=== PATIENT | male | born 1965 | race Caucasian/White ===

== ENCOUNTER → 2018-06-19 | Outpatient (CLI) | payer BC, OTHER ==
[2018-06-19 13:39] LABS: ANION GAP 4 MEQ/L (8-16); BLOOD UREA NITROGEN 22 MG/DL (7-18); CALCIUM LEVEL 9.2 MG/DL (8.5-10.1); CARBON DIOXIDE LEVEL 34 MEQ/L (21-32); CHLORIDE LEVEL 105 MEQ/L (98-107); CREATININE FOR GFR 1.06 MG/DL (0.70-1.30); GLOMERULAR FILTRATION RATE > 60.0 (>56); GLUCOSE, FASTING 87 MG/DL (70-100); POTASSIUM SERUM 3.6 MEQ/L (3.5-5.1); SODIUM LEVEL 143 MEQ/L (136-145)
== END ==
LOC: M WUC 10:15
DX: I10 Essential (primary) hypertension (principal)
CPT/HCPCS: 80048

== ENCOUNTER → 2018-11-25 | Outpatient (CLI) | payer BC, OTHER ==
[~2018-11-25] MED LIST: ALLE10TA12 PO; CELE1CAP9 PO; CYMB60CA3 PO; DIPH50TA4 PO; IBUP200C25 PO; LISI40TAB PO; LORA1SOL PO; MULT1TAB10 PO; VITA2000 PO
--- NOTE | 2018-11-25 16:32 | REP ---
LEFT KNEE, FIVE VIEWS: HISTORY: Knee pain. There is no acute fracture or dislocation. There is mild narrowing of the medial knee joint space and minimal narrowing of the lateral knee joint space. Osteophytes are present on the femur, tibial and patella. A small suprapatellar joint effusion is present. IMPRESSION:Degenerative change as described above. Electronically Signed by Andrey Rodriguez MD 11/25/2018 04:40 P
== END ==
LOC: M WUC 13:51
PROVIDERS: ATTEND Family Medicine
DX: M25.562 Pain in left knee (principal)

== ENCOUNTER → 2019-01-13 | Outpatient (CLI) | payer OTHER, BC ==
[2019-01-13 10:06] LABS: BASO % 0.8 % (0.0-1.0); EOS # 0.2 10^3/uL (0.0-0.50); EOS % 3.4 % (0.0-3.0); HEMATOCRIT 42.3 % (42.0-52.0); HEMOGLOBIN 14.5 g/dl (13.5-17.5); LYMPH # 2.2 10^3/uL (1.5-4.5); LYMPH % 41.3 % (24.0-44.0); MEAN CORPUSCULAR HEMOGLOBIN 28.8 pg (27.0-33.0); MEAN CORPUSCULAR HGB CONC 34.3 g/dl (32.0-36.5); MEAN CORPUSCULAR VOLUME 83.9 fl (80.0-96.0); MONO # 0.4 10^3/uL (0.0-0.8); MONO % 8.3 % (0.0-5.0); NEUTROPHILS # 2.5 10^3/uL (1.8-7.7); PLATELET COUNT, AUTOMATED 223 10^3/uL (150-450); RED BLOOD COUNT 5.04 10^6/uL (4.30-6.10); WHITE BLOOD COUNT 5.3 10^3/uL (4.0-10.0)
[2019-01-13 10:31] LABS: ALBUMIN 3.8 GM/DL (3.2-5.2); ALT/SGPT 31 U/L (12-78); BILIRUBIN,TOTAL 0.7 MG/DL (0.2-1.0); BLOOD UREA NITROGEN 14 MG/DL (7-18); CALCIUM LEVEL 8.8 MG/DL (8.5-10.1); CARBON DIOXIDE LEVEL 29 MEQ/L (21-32); CHLORIDE LEVEL 105 MEQ/L (98-107); CHOLESTEROL LEVEL 160 MG/DL (<200); GLOMERULAR FILTRATION RATE > 60.0 (>56); GLUCOSE, FASTING 89 MG/DL (70-100); HDL CHOLESTEROL 40 MG/DL (>40); LDL CHOLESTEROL 105 MG/DL (<100); NON-HDL-C 120 MG/DL; POTASSIUM SERUM 3.8 MEQ/L (3.5-5.1); SODIUM LEVEL 141 MEQ/L (136-145); TOTAL PROTEIN 6.9 GM/DL (6.4-8.2); TRIGLYCERIDES LEVEL 76 MG/DL (<150)
[2019-01-13 11:03] LABS: TOTAL 25(OH) VITAMIN D 66.6 NG/ML (30.0-100.0)
== END ==
LOC: M WUC 08:38
PROVIDERS: ATTEND Family Medicine
DX: E55.9 Vitamin D deficiency, unspecified (principal); I10 Essential (primary) hypertension

== ENCOUNTER → 2019-05-22 | Outpatient (CLI) | payer BC, OTHER ==
[~2019-05-22] MED LIST changes: +LISI40TA52 PO; -LISI40TAB PO; -LORA1SOL PO; +LORA5SOL12 PO
--- NOTE | 2019-05-27 10:37 | SLEEPCENT ---
DATE OF PROCEDURE: 05/22/2019 ORDERED BY: Neda Méndez NP Nocturnal polysomnography was performed for evaluation of sleep physiology in this patient with disrupted sleep and excessive somnolence who has comorbidities of hypertension and obesity. 8 hours and 44 minutes of data were reviewed. There were 411 minutes of sleep identified. Sleep latency was prolonged at 37.5 minutes. Rapid eye movement (REM) latency was normal at 78 minutes. Sleep architecture showed fragmentation but progression was maintained. There were 4 REM cycles noted. Overall sleep efficiency 79.4%. The electrocardiogram showed a sinus rhythm with an average heart rate of 65 beats per minute. Electroencephalogram (EEG) showed fairly normal waveforms for awake and sleep. There were 72 respiratory events identified of 10 seconds in duration or greater for an apnea-hypopnea index of 10.5. The events were obstructive but not exclusive to sleep stage nor body posture. Arousals from respiratory events occurred 12.2 times per hour when arousals from snoring were included. Oxygen desaturations were seen into the 80s. There was some limb activity but arousals from limb events were few. IMPRESSION: Obstructive sleep apnea syndrome (G47.33). Apnea-hypopnea index 10.5. RECOMMENDATIONS: The patient should be encouraged to return to the sleep disorder center for pressure therapy. In the interim, alcohol and sedative avoidance should be practiced and caution exercised during the operation of motor vehicles.
== END ==
LOC: M SLEEP 19:46
PROVIDERS: ATTEND Nurse Practitioner Adult Health
DX: G47.33 Obstructive sleep apnea (adult) (pediatric) (principal)

== ENCOUNTER → 2019-06-12 | Outpatient (CLI) | payer BC, OTHER ==
--- NOTE | 2019-06-17 09:16 | SLEEPCENT ---
DATE OF PROCEDURE: 06/12/2019 ORDERED BY: Neda Méndez NP Nocturnal polysomnography was performed for the titration of pressure therapy in this patient with obstructive sleep apnea syndrome. Apnea-hypopnea index 10.5. For testing, a [employer]Med Quattro full face mask of large size was used, 5 cm of water pressure were applied to the circuit, and the lights were extinguished. 7 hours and 43 minutes of data were reviewed. There were 370 minutes of sleep identified. Sleep latency was mildly prolonged at 39.5 minutes. Rapid eye movement (REM) latency was normal at 73 minutes. Sleep architecture was fairly good. There were 4 REM cycles. Overall sleep efficiency was 80.8%. The patient's electrocardiogram showed a bigeminal rhythm intermixed with a sinus rhythm and frequent PVCs. Average heart rate 56 beats per minute. Electroencephalogram (EEG) showed normal waveforms for awake and stages. Respiratory events were fully palliated with C-PAP of pressure +9. Remaining measures of sleep physiology were normal. IMPRESSION: 1. Obstructive sleep apnea syndrome (G47.33). 2. Cardiac dysrhythmia. RECOMMENDATIONS: Nightly use of pressure therapy 9 cm of water.
== END ==
LOC: M SLEEP 19:41
PROVIDERS: ATTEND Nurse Practitioner Adult Health
DX: G47.33 Obstructive sleep apnea (adult) (pediatric) (principal)

== ENCOUNTER → 2020-05-04 | Outpatient (CLI) | payer BC, OTHER ==
[2020-05-04 13:18] LABS: HEMATOCRIT 43.9 % (42.0-52.0); MEAN CORPUSCULAR HEMOGLOBIN 29.2 pg (27.0-33.0); MEAN CORPUSCULAR HGB CONC 34.2 g/dl (32.0-36.5); MEAN CORPUSCULAR VOLUME 85.6 fl (80.0-96.0); PLATELET COUNT, AUTOMATED 227 10^3/uL (150-450); RED BLOOD COUNT 5.13 10^6/uL (4.30-6.10); WHITE BLOOD COUNT 6.3 10^3/uL (4.0-10.0)
[2020-05-04 13:29] LABS: ALBUMIN 3.7 GM/DL (3.2-5.2); ALT/SGPT 71 U/L (12-78); BILIRUBIN,TOTAL 0.5 MG/DL (0.2-1.0); BLOOD UREA NITROGEN 17 MG/DL (7-18); CALCIUM LEVEL 9.2 MG/DL (8.5-10.1); CARBON DIOXIDE LEVEL 30 MEQ/L (21-32); CHLORIDE LEVEL 107 MEQ/L (98-107); CHOLESTEROL LEVEL 190 MG/DL (<200); CHOLESTEROL RISK RATIO 4.634 (<5); CREATININE FOR GFR 1.04 MG/DL (0.70-1.30); GLOMERULAR FILTRATION RATE > 60.0 (>56); GLUCOSE, FASTING 95 MG/DL (70-100); HDL CHOLESTEROL 41 MG/DL (>40); LDL CHOLESTEROL 123 MG/DL (<100); NON-HDL-C 149 MG/DL; POTASSIUM SERUM 3.9 MEQ/L (3.5-5.1); PROSTATIC SPECIFIC AG MONITOR 0.45 NG/ML (< 4.00); SODIUM LEVEL 139 MEQ/L (136-145); TOTAL PROTEIN 6.9 GM/DL (6.4-8.2); TRIGLYCERIDES LEVEL 129 MG/DL (<150)
[2020-05-04 13:56] LABS: TOTAL 25(OH) VITAMIN D 41.1 NG/ML (30.0-100.0)
== END ==
LOC: M WUC 09:11
PROVIDERS: ATTEND Family Medicine
DX: Z12.5 Encounter for screening for malignant neoplasm of prostate (principal); I10 Essential (primary) hypertension; E55.9 Vitamin D deficiency, unspecified

== ENCOUNTER → 2021-02-22 | Outpatient (CLI) | payer BC, OTHER ==
[~2021-02-22] MED LIST changes: -LORA5SOL12 PO; +LORA5SOL44 PO
--- NOTE | 2021-02-22 13:37 | REPPI ---
INDICATION: OSTEOARTHRITIS. COMPARISON: None. TECHNIQUE: Plain films of the cervical spine include AP lateral and obliques as well as flex ex views. FINDINGS: No fracture or malalignment. Degenerative changes are more notable at the C6-7 level with anterior osteophytic spurring. Prevertebral soft tissues appear unremarkable. No definite instability on the flex ex views. Osteophytes narrow the neural foramen as seen on the oblique views, C3-4, C5-6 and C6-7 levels. IMPRESSION: No acute findings. Degenerative changes. MRI offers more detailed evaluation of the canal and neural foramen. <Electronically signed by Bart Lackey > 02/22/21 [id number]
[2021-02-22 14:05] LABS: ALBUMIN 4.3 GM/DL (3.2-5.2); ALT/SGPT 35 U/L (12-78); BILIRUBIN,DIRECT 0.2 MG/DL (0.0-0.2); BILIRUBIN,TOTAL 0.8 MG/DL (0.2-1.0); BLOOD UREA NITROGEN 20 MG/DL (7-18); CALCIUM LEVEL 9.7 MG/DL (8.5-10.1); CARBON DIOXIDE LEVEL 30 MEQ/L (21-32); CHLORIDE LEVEL 105 MEQ/L (98-107); GLOMERULAR FILTRATION RATE > 60.0 (>56); GLUCOSE, FASTING 107 MG/DL (70-100); POTASSIUM SERUM 3.6 MEQ/L (3.5-5.1); SODIUM LEVEL 144 MEQ/L (136-145); TOTAL PROTEIN 7.7 GM/DL (6.4-8.2)
--- NOTE | 2021-02-23 07:48 | REPPI ---
INDICATION: OSTEOARTHRITIS COMPARISON: None. TECHNIQUE: AP, lateral, bilateral oblique and sunrise views of the right and left knee. FINDINGS: Right knee demonstrates mildly increased sclerosis along the tibial plateau and along the anterior and posterior margins of the patella with subtle anterior patellar fraying. No further overt arthritic changes are appreciated. No evidence for acute fracture or dislocation. No effusion. Left knee demonstrates small to moderate osteophytes forming along the medial compartment with associated increased sclerosis to the tibial plateau and decreased tibiofemoral joint space. [place] view demonstrates sclerosis along the anterior and posterior patellar margins with subtle early marginal spurring. No evidence for acute fracture or dislocation. No effusion. IMPRESSION: Mild relatively age-related changes to the right knee. Mild/early moderate osteoarthritic changes to the left knee. <Electronically signed by Mike Logan > 02/23/21 [id number]
--- NOTE | 2021-02-23 07:51 | REPPI ---
INDICATION: OSTEOARTHRITIS COMPARISON: None. TECHNIQUE: AP, lateral, bilateral oblique views right and left hand. FINDINGS: Left hand demonstrates subchondral sclerosis, joint space narrowing, and periarticular spurring/osteophyte formation involving the 1st through 5th interphalangeal joints. No acute fracture or dislocation. Right hand demonstrates subchondral sclerosis, joint space narrowing, and periarticular spurring/osteophyte formation involving the 1st through 5th interphalangeal joints. No acute fracture or dislocation. IMPRESSION: Moderate relatively symmetric osteoarthritic degenerative changes primarily involving the interphalangeal joints. <Electronically signed by Mike Logan > 02/23/21 [id number]
== END ==
LOC: M PLAIMG 10:41
PROVIDERS: ATTEND Internal Medicine
DX: M17.10 Unilateral primary osteoarthritis, unspecified knee (principal); Z79.1 Long term (current) use of non-steroidal anti-inflammatories (NSAID); M19.049 Primary osteoarthritis, unspecified hand; M54.2 Cervicalgia; M25.78 Osteophyte, vertebrae

== ENCOUNTER → 2021-05-06 | Outpatient (REF) | payer OTHER ==
[2021-05-06 10:38] LABS: HEMATOCRIT 45.2 % (42.0-52.0); HEMOGLOBIN 15.1 g/dl (13.5-17.5); MEAN CORPUSCULAR HEMOGLOBIN 28.4 pg (27.0-33.0); MEAN CORPUSCULAR HGB CONC 33.4 g/dl (32.0-36.5); PLATELET COUNT, AUTOMATED 214 10^3/uL (150-450); RED BLOOD COUNT 5.32 10^6/uL (4.30-6.10); WHITE BLOOD COUNT 6.7 10^3/uL (4.0-10.0)
[2021-05-06 10:48] LABS: ALT/SGPT 42 U/L (12-78); BILIRUBIN,TOTAL 0.4 MG/DL (0.2-1.0); BLOOD UREA NITROGEN 21 MG/DL (7-18); CALCIUM LEVEL 8.8 MG/DL (8.5-10.1); CARBON DIOXIDE LEVEL 31 MEQ/L (21-32); CHLORIDE LEVEL 107 MEQ/L (98-107); CREATININE FOR GFR 0.95 MG/DL (0.70-1.30); GLOMERULAR FILTRATION RATE > 60.0 (>56); GLUCOSE, FASTING 107 MG/DL (70-100); POTASSIUM SERUM 3.8 MEQ/L (3.5-5.1); SODIUM LEVEL 140 MEQ/L (136-145); TOTAL PROTEIN 7.3 GM/DL (6.4-8.2)
[2021-05-06 10:54] LABS: TOTAL 25(OH) VITAMIN D 41.8 NG/ML (30.0-100.0)
== END ==
LOC: M WUC 09:43
PROVIDERS: ATTEND Family Medicine
DX: E55.9 Vitamin D deficiency, unspecified (principal); Z12.5 Encounter for screening for malignant neoplasm of prostate; M06.4 Inflammatory polyarthropathy
CPT/HCPCS: 36415; 80053; 82306; 85027; G0103

== ENCOUNTER → 2021-10-25 | Outpatient (REF) | payer OTHER ==
[~2021-10-25] MED LIST changes: -CYMB60CA3 PO; +CYMB60CA4 PO
[2021-10-25 17:28] LABS: ALBUMIN 4.1 GM/DL (3.2-5.2); ALT/SGPT 38 U/L (12-78); BILIRUBIN,DIRECT 0.1 MG/DL (0.0-0.2); BILIRUBIN,TOTAL 0.5 MG/DL (0.2-1.0); BLOOD UREA NITROGEN 28 MG/DL (7-18); CALCIUM LEVEL 9.6 MG/DL (8.5-10.1); CARBON DIOXIDE LEVEL 28 MEQ/L (21-32); CHLORIDE LEVEL 107 MEQ/L (98-107); CREATININE FOR GFR 0.88 MG/DL (0.70-1.30); GLOMERULAR FILTRATION RATE > 60.0 (>56); GLUCOSE, FASTING 104 MG/DL (70-100); POTASSIUM SERUM 3.9 MEQ/L (3.5-5.1); SODIUM LEVEL 142 MEQ/L (136-145); TOTAL PROTEIN 7.7 GM/DL (6.4-8.2)
== END ==
LOC: M SFHCRHEU 12:16
PROVIDERS: ATTEND Internal Medicine
DX: Z51.81 Encounter for therapeutic drug level monitoring (principal); Z79.1 Long term (current) use of non-steroidal anti-inflammatories (NSAID)

== ENCOUNTER → 2022-11-14 | Outpatient (CLI) | payer BC, OTHER ==
[2022-11-14 09:52] LABS: BASO # 0.1 10^3/uL (0.0-0.2); BASO % 0.7 % (0.0-1.0); EOS # 0.4 10^3/uL (0.0-0.5); HEMATOCRIT 48.1 % (42.0-52.0); HEMOGLOBIN 15.9 g/dl (13.5-17.5); LYMPH # 3.5 10^3/uL (1.5-5.0); LYMPH % 40.9 % (24.0-44.0); MEAN CORPUSCULAR HEMOGLOBIN 27.9 pg (27.0-33.0); MEAN CORPUSCULAR HGB CONC 33.1 g/dl (32.0-36.5); MEAN CORPUSCULAR VOLUME 84.5 fl (80.0-96.0); MONO # 0.7 10^3/uL (0.0-0.8); MONO % 8.3 % (2.0-8.0); NEUTROPHILS # 3.8 10^3/uL (1.5-8.5); NEUTROPHILS % 44.6 % (36.0-66.0); PLATELET COUNT, AUTOMATED 235 10^3/uL (150-450); RED BLOOD COUNT 5.69 10^6/uL (4.30-6.10); WHITE BLOOD COUNT 8.6 10^3/uL (4.0-10.0)
[2022-11-14 10:24] LABS: PROSTATIC SPECIFIC AG MONITOR 0.44 NG/ML (< 4.00)
[2022-11-14 10:26] LABS: ALKALINE PHOSPHATASE 54 U/L (46-116); ALT/SGPT 41 U/L (7.0-40); AST/SGOT 30 U/L (<34); BILIRUBIN,TOTAL 0.7 MG/DL (0.3-1.2); BLOOD UREA NITROGEN 17 MG/DL (9-23); CALCIUM LEVEL 9.5 MG/DL (8.5-10.1); CARBON DIOXIDE LEVEL 26 MMOL/L (20-31); CHLORIDE LEVEL 105 MMOL/L (98-107); CHOLESTEROL LEVEL 215 MG/DL (<200); CREATININE FOR GFR 0.92 MG/DL (0.70-1.30); GLOMERULAR FILTRATION RATE > 60.0 (>56); GLUCOSE, FASTING 92 MG/DL (60-100); HDL CHOLESTEROL 49.9 MG/DL (>40); LDL CHOLESTEROL 137.7 MG/DL (<100); NON-HDL-C 165 MG/DL; POTASSIUM SERUM 4.2 MMOL/L (3.5-5.1); SODIUM LEVEL 143 MMOL/L (136-145); TOTAL PROTEIN 7.1 G/DL (5.7-8.2); TRIGLYCERIDES LEVEL 137 MG/DL (<150)
[2022-11-14 10:28] LABS: TOTAL 25(OH) VITAMIN D 33.5 NG/ML (20.0-100.0)
== END ==
LOC: M WUC 08:19
PROVIDERS: ATTEND Family Medicine
DX: E55.9 Vitamin D deficiency, unspecified (principal); Z12.5 Encounter for screening for malignant neoplasm of prostate; I10 Essential (primary) hypertension

== ENCOUNTER → 2023-11-14 | Outpatient (CLI) | payer BC, OTHER ==
[~2023-11-14] MED LIST changes: +CELE0.09 PO; -CELE1CAP9 PO
[2023-11-14 13:14] LABS: BASO # 0.1 10^3/uL (0.0-0.2); BASO % 0.8 % (0.0-1.0); EOS # 0.4 10^3/uL (0.0-0.5); EOS % 5.1 % (0.0-3.0); HEMATOCRIT 47.4 % (42.0-52.0); HEMOGLOBIN 15.9 g/dl (13.5-17.5); LYMPH # 3.3 10^3/uL (1.5-5.0); LYMPH % 41.3 % (24.0-44.0); MEAN CORPUSCULAR HEMOGLOBIN 28.9 pg (27.0-33.0); MEAN CORPUSCULAR HGB CONC 33.5 g/dl (32.0-36.5); MEAN CORPUSCULAR VOLUME 86.2 fl (80.0-96.0); MONO # 0.6 10^3/uL (0.0-0.8); MONO % 7.4 % (2.0-8.0); NEUTROPHILS # 3.6 10^3/uL (1.5-8.5); PLATELET COUNT, AUTOMATED 234 10^3/uL (150-450); WHITE BLOOD COUNT 7.9 10^3/uL (4.0-10.0)
[2023-11-14 13:50] LABS: ALBUMIN 3.9 G/DL (3.2-5.2); ALKALINE PHOSPHATASE 48 U/L (46-116); ALT/SGPT 60 U/L (7.0-40); AST/SGOT 34 U/L (<34); BILIRUBIN,TOTAL 0.5 MG/DL (0.3-1.2); BLOOD UREA NITROGEN 14 MG/DL (9-23); CALCIUM LEVEL 8.8 MG/DL (8.5-10.1); CARBON DIOXIDE LEVEL 28 MMOL/L (20-31); CHLORIDE LEVEL 106 MMOL/L (98-107); CHOLESTEROL LEVEL 193 MG/DL (<200); CHOLESTEROL RISK RATIO 4.35 (<5); CREATININE FOR GFR 0.91 MG/DL (0.70-1.30); GLOMERULAR FILTRATION RATE > 60.0 (>56); GLUCOSE, FASTING 104 MG/DL (60-100); HDL CHOLESTEROL 44.3 MG/DL (>40); LDL CHOLESTEROL 117.9 MG/DL (<100); NON-HDL-C 148.7 MG/DL; POTASSIUM SERUM 3.8 MMOL/L (3.5-5.1); PROSTATIC SPECIFIC AG MONITOR 0.53 NG/ML (< 4.00); SODIUM LEVEL 139 MMOL/L (136-145); TOTAL PROTEIN 6.8 G/DL (5.7-8.2); TRIGLYCERIDES LEVEL 154 MG/DL (<150)
[2023-11-14 13:52] LABS: TOTAL 25(OH) VITAMIN D 42.9 NG/ML (20.0-100.0)
== END ==
LOC: M WUC 08:55
PROVIDERS: ATTEND Family Medicine
DX: E55.9 Vitamin D deficiency, unspecified (principal); Z12.5 Encounter for screening for malignant neoplasm of prostate; I10 Essential (primary) hypertension

== ENCOUNTER → 2024-05-13 | Outpatient (CLI) | payer BC, OTHER ==
[2024-05-13 11:11] LABS: ALBUMIN 3.9 G/DL (3.2-5.2); ALKALINE PHOSPHATASE 52 U/L (46-116); ALT/SGPT 61 U/L (7.0-40); AST/SGOT 32 U/L (<34); BILIRUBIN,TOTAL 0.8 MG/DL (0.3-1.2); BLOOD UREA NITROGEN 16 MG/DL (9-23); CALCIUM LEVEL 9.5 MG/DL (8.5-10.1); CARBON DIOXIDE LEVEL 28 MMOL/L (20-31); CHLORIDE LEVEL 107 MMOL/L (98-107); CHOLESTEROL LEVEL 211 MG/DL (<200); CREATININE FOR GFR 1.01 MG/DL (0.70-1.30); GLOMERULAR FILTRATION RATE > 60.0 (>56); GLUCOSE, FASTING 108 MG/DL (60-100); HDL CHOLESTEROL 39.8 MG/DL (>40); LDL CHOLESTEROL 138.2 MG/DL (<100); NON-HDL-C 171.2 MG/DL; POTASSIUM SERUM 3.9 MMOL/L (3.5-5.1); SODIUM LEVEL 143 MMOL/L (136-145); TOTAL PROTEIN 6.9 G/DL (5.7-8.2); TRIGLYCERIDES LEVEL 165 MG/DL (<150)
== END ==
LOC: M WUC 08:10
PROVIDERS: ATTEND Family Medicine
DX: I10 Essential (primary) hypertension (principal)